=== PATIENT | female | born 1975 | race African-American/Black ===

== ENCOUNTER 2018-03-22 14:19 | Emergency (ER) | payer BC, OTHER ==
[2018-03-22 14:52] VITALS: BP 119/72; PULSE 74; TEMP 98.5; BMI 25.6
--- NOTE | 2018-03-22 15:18 | PDOC ---
History of Present Illness - General History Source: Patient Exam Limitations: No Limitations <Gerardo Rizo - Last Filed: 03/22/18 15:17> <Aleks Berg - Last Filed: 03/22/18 16:29> - General Chief Complaint: Palpitations Stated Complaint: PALPITATIONS Time Seen by Provider: 03/22/18 15:00 Past History - Past Medical History COPD: No Other medical history: electrical shock at work - Surgical History Appendectomy: Yes - Immunization History Immunization Up to Date: Yes - Suicide/Smoking/Psychosocial Hx Smoking Status: No Smoking History: Never smoked Number of Cigarettes Smoked Daily: 0 Hx Alcohol Use: Yes (occasion) <Gerardo Rizo - Last Filed: 03/22/18 15:17> <Aleks Berg - Last Filed: 03/22/18 16:29> - Past Medical History Allergies/Adverse Reactions: Allergies Allergy/AdvReac Type Severity Reaction Status Date / Time No Known Allergies Allergy Verified 03/22/18 14:26 Home Medications: Ambulatory Orders No Home Medications 0 dose .ROUTE UTDICT 03/14/12 *Physical Exam - Vital Signs Last Vital Signs Temp Pulse Resp BP Pulse Ox 98.5 F 74 18 119/72 100 03/22/18 14:29 03/22/18 14:29 03/22/18 14:29 03/22/18 14:29 03/22/18 14:29 <Gerardo Rizo - Last Filed: 03/22/18 15:17> - Vital Signs Last Vital Signs Temp Pulse Resp BP Pulse Ox 98.5 F 74 18 119/72 100 03/22/18 14:29 03/22/18 14:29 03/22/18 14:29 03/22/18 14:29 03/22/18 14:29 <Aleks Berg - Last Filed: 03/22/18 16:29> ED Treatment Course - LABORATORY CBC & Chemistry Diagram: 03/22/18 15:38 03/22/18 15:38 - ADDITIONAL ORDERS Additional order review: Laboratory Results 03/22/18 15:38 Sodium 142 Potassium 3.8 Chloride 106 Carbon Dioxide 27 Anion Gap 9 BUN 11 Creatinine 0.5 L Creat Clearance w eGFR > 60 Random Glucose 99 Calcium 8.8 TSH 2.94 03/22/18 15:38 RBC 3.82 MCV 89.7 MCHC 33.6 RDW 14.2 MPV 11.1 <Aleks Berg - Last Filed: 03/22/18 16:29> *DC/Admit/Observation/Transfer <Gerardo Rizo - Last Filed: 03/22/18 15:17> - Discharge Dispostion Decision to Admit order: No <Aleks Berg - Last Filed: 03/22/18 16:29> Diagnosis at time of Disposition: Palpitations - Discharge Dispostion Disposition: HOME Condition at time of disposition: Good - Referrals Referrals: [facility] [place] [facility] [place] [Provider Group] - Patient Instructions Printed Discharge Instructions: DI for Palpitations Additional Instructions: Your workup in the emergency room today did not reveal any abnormalities. Please follow-up with her primary care provider next week. Return to the emergency department for any severe worsening symptoms or for any concerns.
--- NOTE | 2018-03-22 15:41 | PDOC ---
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 Since his electrical injury patient has had intermittent palpitations usually he times a day lasting a few seconds today became more frequent. No associated chest pain shortness of breath symptoms are moderate several minutes no exacerbating or alleviating factors. Insert my ROS statement - Physicial Exam PE: 03/22/18 16:15 Vitals: Triage Vital signs reviewed General Appearance: no acute distress, well nourished well developed, Head: Atraumatic, Eyes: Pupils equal reactive round, extraocular movement intact Chest Wall: Nontender Cardiac: Regular rate and rhythym, no murmurs, no rubs, no gallops, Lungs: Clear to auscultation bilateral, good air movement bilaterally, Abdomen: Soft, non distended, normal bowel sounds, non tender to palpation Extremities: Full range of motion to all extremities, no cyanosis, clubbing, or edema Skin: Warm and dry, no rashes or lesions, no rash, no petechiae Neuro: AOX3; Cranial Nerves 2-12 grossly intact, Strength intact to all extremities, Sensation intact to all extremities,gait normal Psych: normal mood, normal affect - Medical Decision Making 03/22/18 16:17\ Heart score is 0 intermittent palpitations labs within normal limits Findings, the need for follow-up, strict return instructions discussed with patient. Heart Score/ECG Review - History History: Slightly suspicious - Electrocardiogram EKG: Normal - Age Age: </= 45 - Risk Factors Based on the list above the patient has:: No risk factors known - Troponin Troponin: </= normal limit - Score Heart Score - Total: 0 - ECG Impressions Comment:: 03/22/18 16:16 EKG performed at 1428 demonstrates sinus rhythm [address] elevations or T- wave inversions no evidence of WPW B[place] or prolonged QT. Interpreted by me
[2018-03-22 15:49] LABS: HEMATOCRIT 34.3 % (32.4-45.2); HEMOGLOBIN 11.5 GM/dL (10.7-15.3); MCH 30.1 pg (25.7-33.7); MCHC 33.6 g/dl (32.0-36.0); MEAN CELL VOLUME 89.7 fl (80-96); MEAN PLT VOLUME 11.1 fl (7.5-11.1); PLATELET COUNT 176 K/MM3 (134-434); RBC 3.82 M/mm3 (3.60-5.2); RDW 14.2 % (11.6-15.6); WHITE BLOOD COUNT 3.9 K/mm3 (4.0-10.0)
--- NOTE | 2018-03-22 15:56 | EKG ---
Test Reason : Blood Pressure : / mmHG Vent. Rate : 066 BPM Atrial Rate : 066 BPM P-R Int : 180 ms QRS Dur : 086 ms QT Int : 408 ms P-R-T Axes : 053 023 041 degrees QTc Int : 427 ms NORMAL SINUS RHYTHM POSSIBLE LEFT ATRIAL ENLARGEMENT BORDERLINE ECG NO PREVIOUS ECGS AVAILABLE Confirmed by BEATRIZ STEINER, HUNTER ([id number]) on 03/22/2018 3:56:30 PM Referred By: Confirmed By:HUNTER HENDERSON MD
[2018-03-22 16:05] LABS: ANION GAP 9 MMOL/L (8-16); BLOOD UREA NITROGEN 11 mg/dL (7-18); CALCIUM 8.8 mg/dL (8.5-10.1); CHLORIDE 106 mmol/L (98-107); CO2 27 mmol/L (21-32); CREATININE 0.5 mg/dL (0.55-1.02); GLUCOSE,RANDOM 99 mg/dL (74-106); POTASSIUM 3.8 mmol/L (3.5-5.1); SODIUM 142 mmol/L (136-145)
== END 2018-03-22 16:52 | disposition home or self-care (01) ==
LOC: JER 14:19
DX: R00.2 Palpitations (principal); T75.4XXS Electrocution, sequela; W86.8XXS Exposure to other electric current, sequela
CPT/HCPCS: 36415; 80048; 84443; 85027; 93005; 93010; 99285-25